=== PATIENT | male | born 1945 | race Caucasian/White ===

== ENCOUNTER → 2017-01-24 | Outpatient (CLI) | payer MEDICARE ==
[~2017-01-24] MED LIST: ATOR10 PO; DAYQLIQ; HYDR200T42 PO; IBUP-238 PO; LORT5TAB PO
[2017-01-24 13:20] LABS: AUTOMATED NEUTROPHIL # 3.9 TH/MM3 (1.8-7.7); BASOPHIL # 0.1 TH/MM3 (0-0.2); BASOPHIL % 1.1 % (0.0-2.0); EOSINOPHIL # 0.6 TH/MM3 (0-0.4); EOSINOPHIL % 7.9 % (0.0-4.0); HEMATOCRIT 49.6 % (39.0-51.0); HEMO FLAGS DIFF FINAL; LYMPHOCYTE # 1.8 TH/MM3 (1.0-4.8); MEAN CORPUSCULAR HEMOGLOBIN 32.1 PG (27.0-34.0); MEAN CORPUSCULAR HGB CONC 33.4 % (32.0-36.0); MONO % 11.4 % (0.0-8.0); NEUT % 54.6 % (16.0-70.0); PLATELET COUNT 210 TH/MM3 (150-450); RED BLOOD COUNT 5.16 MIL/MM3 (4.50-5.90); RED CELL DISTRIBUTION WIDTH 13.8 % (11.6-17.2); WHITE BLOOD COUNT 7.2 TH/MM3 (4.0-11.0)
[2017-01-24 13:50] LABS: ANION GAP 8 MEQ/L (5-15); AST (GOT) 24 U/L (15-37); BICARBONATE 25.6 MEQ/L (21.0-32.0); BLOOD UREA NITROGEN 15 MG/DL (7-18); CHLORIDE 105 MEQ/L (98-107); GLOMERULAR FILTRATION RATE 84 ML/MIN (>89); POTASSIUM 3.9 MEQ/L (3.5-5.1); SODIUM (NA) 139 MEQ/L (136-145)
[2017-01-24 13:52] LABS: ALT (GPT) 31 U/L (12-78)
[2017-01-24 13:54] LABS: ALKALINE PHOSPHATASE 71 U/L (45-117); FERRITIN 169 NG/ML (26-388); TOTAL BILIRUBIN ADULT 0.7 MG/DL (0.2-1.0); TRANSFERRIN IRON PROFILE 268 MG/DL (200-360)
== END ==
LOC: PLAB 08:13
PROVIDERS: ATTEND Allergy & Immunology
DX: E83.118 Other hemochromatosis (principal); L93.0 Discoid lupus erythematosus
CPT/HCPCS: 36415; 80053; 82728; 83540; 83550; 85025

== ENCOUNTER → 2017-04-19 | Outpatient (CLI) | payer MEDICARE ==
[2017-04-19 13:38] LABS: HDL CHOLESTEROL 48.3 MG/DL (40.0-60.0)
== END ==
LOC: PLAB 09:45
PROVIDERS: ATTEND Family Medicine
DX: E78.5 Hyperlipidemia, unspecified (principal); I10 Essential (primary) hypertension; Z12.5 Encounter for screening for malignant neoplasm of prostate
CPT/HCPCS: 36415; 80061; G0103

== ENCOUNTER 2017-06-09 07:54 | Emergency (ER) | payer MEDICARE ==
[~2017-06-09] VITALS: Ht 167.6 cm; Wt 76.6 kg
[2017-06-09 08:05] VITALS: BP 170/105; PULSE 86; RESP 16; TEMP 98; O2SAT 95
[2017-06-09] MEDS ORDERED: PLAQ200T PO (08:15)
[2017-06-09] MEDS ORDERED: LOSA25TA PO (08:15)
[2017-06-09] MEDS ORDERED: DICY10CA12 PO (08:15)
[2017-06-09] MEDS ORDERED: LIPI10TA PO (08:15)
[2017-06-09 08:20] VITALS: RESP 16; O2SAT 99
[2017-06-09] MEDS ORDERED: MORPHINE SULFATE 4 MG/ML INJ IV PUSH ONE (08:30)
[2017-06-09] MEDS ORDERED: SODIUM CHLORIDE 0.9% FLUSH 10 ML FLUSH IVF PRN (08:30)
[2017-06-09] MEDS ORDERED: SODIUM CHLOR 0.9% 1000 ML INJ 1,000 ML IV ONE (08:30)
[2017-06-09 08:37] LABS: AUTOMATED NEUTROPHIL # 3.9 TH/MM3 (1.8-7.7); BASOPHIL # 0.3 TH/MM3 (0-0.2); BASOPHIL % 3.5 % (0.0-2.0); EOSINOPHIL # 0.5 TH/MM3 (0-0.4); EOSINOPHIL % 7.4 % (0.0-4.0); HEMATOCRIT 51.9 % (39.0-51.0); HEMO FLAGS DIFF FINAL; LYMPH % 28.7 % (9.0-44.0); LYMPHOCYTE # 2.1 TH/MM3 (1.0-4.8); MEAN CELL VOLUME 94.4 FL (80.0-100.0); MEAN CORPUSCULAR HEMOGLOBIN 31.9 PG (27.0-34.0); MEAN CORPUSCULAR HGB CONC 33.7 % (32.0-36.0); NEUT % 52.4 % (16.0-70.0); PLATELET COUNT 224 TH/MM3 (150-450); RED BLOOD COUNT 5.49 MIL/MM3 (4.50-5.90); RED CELL DISTRIBUTION WIDTH 12.2 % (11.6-17.2); WHITE BLOOD COUNT 7.4 TH/MM3 (4.0-11.0)
--- NOTE | 2017-06-09 08:39 | RADRPT ---
EXAM DATE/TIME: 06/09/2017 08:23 [facility] COMPARISON: No previous studies available for comparison. INDICATIONS : Chest pain MEDICAL HISTORY : Hypercholesterolemia. Lupus. SURGICAL HISTORY : None. ENCOUNTER: Initial ACUITY: 3 days PAIN SCORE: 3/10 LOCATION: Right chest FINDINGS: No focal pleural or parenchymal opacities. Cardiomediastinal contours are within normal limits. Remai nder of the exam is unchanged. CONCLUSION: 1. No acute cardiopulmonary disease. Manuel Engel MD on June 09, 2017 at 8:36 Board Certified Radiologist. This report was verified electronically.
[2017-06-09 08:44] LABS: CHLORIDE 105 MEQ/L (98-107); POTASSIUM 4.1 MEQ/L (3.5-5.1); SODIUM (NA) 138 MEQ/L (136-145)
[2017-06-09 08:47] LABS: ANION GAP 7 MEQ/L (5-15); BICARBONATE 26.3 MEQ/L (21.0-32.0); BLOOD UREA NITROGEN 12 MG/DL (7-18)
[2017-06-09 08:47] LABS: BLOOD, URINE NEG (NEG); GLUCOSE,URINE NEG (NEG); KETONE, URINE NEG (NEG); NITRITE,URINE NEG (NEG)
[2017-06-09 08:50] LABS: ALT (GPT) 37 U/L (12-78)
[2017-06-09 08:50] LABS: METHOD OF COLLECTION CLEAN CATCH; URINE COLOR YELLOW (YELLW/STRAW)
[2017-06-09 08:51] LABS: AST (GOT) 18 U/L (15-37); GLOMERULAR FILTRATION RATE 66 ML/MIN (>89)
[2017-06-09 08:51] LABS: COMMENT (UR) CULT NOT INDICATED; CULTURE IF INDICATED CULT NOT INDICATED; RBC, URINE 0-3 /hpf (0-3); SQUAMOUS EPITHELIAL CELL URINE 0-5 /hpf (0-5)
[2017-06-09 08:52] LABS: TOTAL BILIRUBIN ADULT 0.9 MG/DL (0.2-1.0)
[2017-06-09 08:53] LABS: ALKALINE PHOSPHATASE 76 U/L (45-117)
[2017-06-09 08:55] VITALS: RESP 16
[2017-06-09 09:15] VITALS: BP_SYST 177; BP_SYST 180; BP_DIAS 105; BP_DIAS 98; PULSE 80
--- NOTE | 2017-06-09 09:42 | RADRPT ---
EXAM DATE/TIME: 06/09/2017 09:23 [facility] COMPARISON: No previous studies available for comparison. INDICATIONS : Right flank and low back pain. ORAL CONTRAST: No oral contrast ingested. RADIATION DOSE: 13.62 CTDIvol (mGy) MEDICAL HISTORY : Lupus. SURGICAL HISTORY : None. ENCOUNTER: Initial ACUITY: 2 days PAIN SCALE: 9/10 LOCATION: Right flank TECHNIQUE: Volumetric scanning of the abdomen and pelvis was performed. Using automated exposure control and ad justment of the mA and/or kV according to patient size, radiation dose was kept as low as reasonably achievable to obtain optimal diagnostic quality images. DICOM format image data is available electro nically for review and comparison. FINDINGS: LOWER LUNGS: The visualized lower lungs are clear. LIVER: Homogeneous density without lesion. There is no dilation of the biliary tree. No calcified gallston es. SPLEEN: Normal size without lesion. PANCREAS: Within normal limits. KIDNEYS: Normal in size and shape. There is no mass, stone, or hydronephrosis. ADRENAL GLANDS: Within normal limits. VASCULAR: There is no aortic aneurysm. Moderate atherosclerotic calcifications of the infrarenal abdominal aort a and proximal common iliac arteries. BOWEL/MESENTERY: Mild to moderate sigmoid diverticulosis and scattered diverticula in the descending colon without teresa dence for significant inflammatory change to suggest diverticulitis. Appendix is not directly visuali zed. However, there is no significant inflammatory changes in the pericecal region or significant per icecal adenopathy. There is a moderate amount of stool in the ascending colon. ABDOMINAL WALL: Within normal limits. RETROPERITONEUM: There is no lymphadenopathy. BLADDER: No wall thickening or mass. REPRODUCTIVE: Nonspecific enlargement prostate gland. INGUINAL: There is no lymphadenopathy or hernia. MUSCULOSKELETAL: Within normal limits for patient age. CONCLUSION: 1. No radiopaque renal calculi or obstructive uropathy. 2. The appendix is not directly visualized. However, there is no significant pericecal inflammatory c hanges. 3. Colonic diverticulosis without evidence for diverticulitis. Manuel Engel MD on June 09, 2017 at 9:35 Board Certified Radiologist. This report was verified electronically.
--- NOTE | 2017-06-09 09:49 | RADRPT ---
EXAM DATE/TIME: 06/09/2017 09:23 [facility] COMPARISON: No previous studies available for comparison. INDICATIONS : Trauma. Right flank and low back pain. RADIATION DOSE: ; Reconstructed from previous dataset, no dose MEDICAL HISTORY : Lupus. SURGICAL HISTORY : None. ENCOUNTER: Initial ACUITY: 1 day PAIN SCALE: 9/10 LOCATION: Right low back TECHNIQUE: Volumetric scanning of the lumbar spine was performed. Multiplanar reconstructions in the sagittal, coronal and oblique axial planes were performed. Using automated exposure control and adjustment of the mA and/or kV according to patient size, radiation dose was kept as low as reasonably achievable t o obtain optimal diagnostic quality images. DICOM format image data is available electronically for review and comparison. FINDINGS: There are 5 lumbar-type vertebral bodies. Vertebral body heights are maintained. No acute bony fractu re or focal bony destruction. Sagittal alignment is maintained. Facets are normally aligned. There is no significant prevertebral hematoma or soft tissue abnormality. Degenerative spondylosis of the low er lumbar spine most prominently at L4-5 and L5-S1 is mild diffuse disc bulge and facet arthropathy. There is effacement of the anterior thecal sac at L4-5 with central canal measuring approximately 10 mm. Bony central canal is patent. Sacrum appears intact. CONCLUSION: 1. No acute fracture or subluxation. 2. Degenerative spondylosis of the lower lumbar spine most prominently at L4-S1. Manuel Engel MD on June 09, 2017 at 9:43 Board Certified Radiologist. This report was verified electronically.
[2017-06-09] MEDS ORDERED: TRAM50TA PO (10:09)
--- NOTE | 2017-06-09 10:09 | PD ---
HPI Chief Complaint: Flank/Kidney Pain Time Seen by Provider: 08:11 Travel History International Travel<30 days: No Contact w/Intl Traveler<30days: No Traveled to known affect area: No History of Present Illness HPI 71-year-old male who presents to the emergency department with right sided flank pain, constant, moderate severity that's been going on for 3 days, worse in the evenings and worse with movement, improved with rest, with no associated shortness of breath, chest discomfort, vomiting or fever. He is never had pain like this before. He denies any injuries. He denies any dysuria or hematuria. He has had shingles before but he says this feels different. PFSH Past Medical History Hx Anticoagulant Therapy: No Cardiovascular Problems: No High Cholesterol: Yes Chemotherapy: No Cerebrovascular Accident: No Diabetes: No Diminished Hearing: No Medical other: Yes (LUPUS) Respiratory: No Immunizations Current: No Tetanus Vaccination: Unknown Influenza Vaccination: No Past Surgical History Hysterectomy: No Other Surgery: Yes (SQUAMOUS CELL REMOVED LOWER LIP.) Social History Alcohol Use: Yes (3/DAY) Tobacco Use: Yes (3/4 PPD) Substance Use: No Allergies-Medications (Allergen,Severity, Reaction): Coded Allergies: No Known Allergies (Verified Adverse Reaction, Unknown, 06/09/17) Reported Meds & Prescriptions Reported Meds & Active Scripts Active Reported Dicyclomine (Dicyclomine HCl) 10 Mg Cap Unknown Dose PO DAILY Losartan (Losartan Potassium) 25 Mg Tab Unknown Dose PO DAILY Plaquenil (Hydroxychloroquine Sulfate) 200 Mg Tab 200 Mg PO EVERY OTHER DAY Take with food Lipitor (Atorvastatin Calcium) 10 Mg Tab 10 Mg PO HS Review of Systems Except as stated in HPI: all other systems reviewed are Neg Physical Exam Narrative GENERAL:Well appearing, no acute distress SKIN: Focused skin assessment warm and dry. HEAD: Atraumatic. Normocephalic. EYES: Pupils equal and round. No injection or drainage. ENT: Moist mucous membranes NECK: Trachea midline. CARDIOVASCULAR: Regular rate and rhythm. No murmur appreciated. Focally tender to palpation along the lower rib cage along the mid axillary line on the right RESPIRATORY: Clear to auscultation. Breath sounds equal bilaterally. GASTROINTESTINAL: Abdomen soft, non-tender, nondistended. MUSCULOSKELETAL: No obvious deformities. NEUROLOGICAL: Awake and alert. No obvious cranial nerve deficits. Moving all extremities. PSYCHIATRIC: Appropriate mood and affect; insight and judgment normal. Data Data Last Documented VS Vital Signs Date Time Temp Pulse Resp B/P (MAP) Pulse Ox O2 Delivery O2 Flow Rate FiO2 06/09/17 09:15 80 180/98 (125) 177/105 (129) 06/09/17 08:55 16 06/09/17 08:20 99 Room Air 06/09/17 08:05 98.0 Orders Orders Electrocardiogram (06/09/17 08:20) Complete Blood Count With Diff (06/09/17 08:20) Comprehensive Metabolic Panel (06/09/17 08:20) D-Dimer (06/09/17 08:20) Troponin I (06/09/17 08:20) Chest, Single Ap (06/09/17 08:20) Ecg Monitoring (06/09/17 08:20) Bilateral Bp Monitoring (06/09/17 08:20) Iv Access Insert/Monitor (06/09/17 08:20) Oximetry (06/09/17 08:20) Oxygen Administration (06/09/17 08:20) Morphine Inj (Morphine Inj) (06/09/17 08:30) Sodium Chloride 0.9% Flush (Ns Flush) (06/09/17 08:30) Sodium Chlor 0.9% 1000 Ml Inj (Ns 1000 M (06/09/17 08:30) Urinalysis - C+S If Indicated (06/09/17 08:21) Ct Abd/Pel W/O Iv Contrast (06/09/17 ) Ct Lumb Spine W/O Contrast (06/09/17 ) Labs Laboratory Tests Test 06/09/17 08:25 06/09/17 08:35 White Blood Count 7.4 TH/MM3 Red Blood Count 5.49 MIL/MM3 Hemoglobin 17.5 GM/DL Hematocrit 51.9 % Mean Corpuscular Volume 94.4 FL Mean Corpuscular Hemoglobin 31.9 PG Mean Corpuscular Hemoglobin Concent 33.7 % Red Cell Distribution Width 12.2 % Platelet Count 224 TH/MM3 Mean Platelet Volume 8.6 FL Neutrophils (%) (Auto) 52.4 % Lymphocytes (%) (Auto) 28.7 % Monocytes (%) (Auto) 8.0 % Eosinophils (%) (Auto) 7.4 % Basophils (%) (Auto) 3.5 % Neutrophils # (Auto) 3.9 TH/MM3 Lymphocytes # (Auto) 2.1 TH/MM3 Monocytes # (Auto) 0.6 TH/MM3 Eosinophils # (Auto) 0.5 TH/MM3 Basophils # (Auto) 0.3 TH/MM3 CBC Comment DIFF FINAL Differential Comment D-Dimer Quantitative (PE/DVT) 0.50 MG/L FEU Blood Urea Nitrogen 12 MG/DL Creatinine 1.10 MG/DL Random Glucose 101 MG/DL Total Protein 8.2 GM/DL Albumin 4.1 GM/DL Calcium Level 9.2 MG/DL Alkaline Phosphatase 76 U/L Aspartate Amino Transf (AST/SGOT) 18 U/L Alanine Aminotransferase (ALT/SGPT) 37 U/L Total Bilirubin 0.9 MG/DL Sodium Level 138 MEQ/L Potassium Level 4.1 MEQ/L Chloride Level 105 MEQ/L Carbon Dioxide Level 26.3 MEQ/L Anion Gap 7 MEQ/L Estimat Glomerular Filtration Rate 66 ML/MIN Troponin I LESS THAN 0.02 NG/ML Urine Collection Type CLEAN CATCH Urine Color YELLOW Urine Turbidity CLEAR Urine pH 6.0 Urine Specific Bunch 1.018 Urine Protein NEG mg/dL Urine Glucose (UA) NEG mg/dL Urine Ketones NEG mg/dL Urine Occult Blood NEG Urine Nitrite NEG Urine Bilirubin NEG Urine Leukocyte Esterase NEG Urine RBC 0-3 /hpf Urine Squamous Epithelial Cells 0-5 /hpf Microscopic Urinalysis Comment CULT NOT INDICATED Urine Collection Time 08:35 [facility] Medical Decision Making Medical Screen Exam Complete: Yes Emergency Medical Condition: Yes Interpretation(s) No leukocytosis Hemoconcentration Electrolytes are reassuring Troponin is normal D-dimer is 0.5 Urinalysis is negative for infection Last 24 hours Impressions Chest X-Ray 06/09/17 0820 Signed Impressions: Service Date/Time: Friday, June 09, 2017 08:23 - CONCLUSION: 1. No acute cardiopulmonary disease. Manuel Engel MD Lumbar Spine CT 06/09/17 0000 Signed Impressions: Service Date/Time: Friday, June 09, 2017 09:23 - CONCLUSION: 1. No acute fracture or subluxation. 2. Degenerative spondylosis of the lower lumbar spine most prominently at L4-S1. Manuel Engel MD Abdomen/Pelvis CT 06/09/17 0000 Signed Impressions: Service Date/Time: Friday, June 09, 2017 09:23 - CONCLUSION: 1. No radiopaque renal calculi or obstructive uropathy. 2. The appendix is not directly visualized. However, there is no significant pericecal inflammatory changes. 3. Colonic diverticulosis without evidence for diverticulitis. Manuel Engel MD Differential Diagnosis Costochondritis, cholelithiasis, cholecystitis, shingles, nephrolithiasis, obstructive uropathy, pulmonary embolism, pneumonia Narrative Course This is a 71-year-old male who presents to the emergency department with right sided flank pain that's been going on for several days. He is point tender along the right rib cage. He is not hypoxic. Labs are all reassuring. D- dimer is normal for age. CT abdomen and pelvis was obtained which was reassuring with no evidence of kidney stone or hydronephrosis. I think the patient's pain is musculoskeletal. I also wouldn't be surprised if he develops shingles which I discussed with him. I don't think he necessarily requires early treatment as the pain seems positional and more musculoskeletal. Patient will be discharged with pain control and should follow-up with his primary care physician on Monday. He doesn't check his blood pressure daily and his blood pressure medicines have been adjusted recently. I don't think he requires acute treatment for his hypertension and he can follow-up with his primary care physician. Diagnosis Primary Impression: Rib pain on right side Patient Instructions: General Instructions Additional Instructions: If you develop severe chest pain, shortness of breath, sweating, lightheadedness , dizziness or difficulty breathing return to the emergency department immediately. Followup with your primary care physician in 2-3 days if your symptoms are not resolved. Med/Other Pt SpecificInfo: Prescription(s) given Scripts Tramadol (Tramadol) 50 Mg Tab 50 MG PO Q6H Y for PAIN, #14 TAB 0 Refills Prov: Eileen Barrow MD 06/09/17 Disposition: 01 DISCHARGE HOME Condition: Stable Eileen Barrow MD Jun 09, 2017 10:09
[2017-06-09] MEDS ORDERED: VALA1TAB PO (10:17)
[2017-06-09] MEDS ORDERED: LIDO1PAD52 TOPICAL (10:17)
[2017-06-09 10:29] VITALS: BP 178/91
--- NOTE | 2017-06-09 13:04 | EKG ---
Date Performed: 06/09/2017 Time Performed: 08:46:33 PTAGE: 71 years EKG: Sinus rhythm POSSIBLE INFERIOR MYOCARDIAL INFARCTION BORDERLINE ECG NO PREVIOUS TRACING DOCTOR: Fredi Forte Interpretating Date/Time 06/09/2017 13:02:35
== END 2017-06-09 10:31 | disposition home or self-care (01) ==
LOC: PHED 07:54
DX: R07.81 Pleurodynia (principal); K57.30 Diverticulosis of large intestine without perforation or abscess without bleeding; F17.200 Nicotine dependence, unspecified, uncomplicated; E78.00 Pure hypercholesterolemia, unspecified; M32.9 Systemic lupus erythematosus, unspecified
CPT/HCPCS: 71010; 72131; 74176; 80053; 81001; 84484; 85025; 85379; 93005; 96361; 96374; 99285; J2270; J7030